=== PATIENT | male | born 1940 | race Caucasian/White ===

== ENCOUNTER → 2023-11-05 08:18 | Outpatient (REF) | payer MEDICARE, OTHER, SELFPAY ==
[2023-11-05 09:45] LABS: % Basophils 0.6 % (0-2); % Eosinophils 4.4 % (0-6); % Immature Granulocytes 0.3 % (0-0.5); % Lymphocytes 32.6 % (20.5-51.1); % Monocytes 8.6 % (1.7-9.3); % Neutrophils 53.5 % (42.2-75.2); Absolute Basophils 0.1 10^3/uL (0-0.2); Absolute Eosinophils 0.4 10^3/uL (0-0.7); Absolute Lymphocytes 2.9 10^3/uL (1.2-3.4); Absolute Monocytes 0.8 10^3/uL (0.1-0.6); Absolute Neutrophils 4.7 10^3/uL (1.4-6.5); Hematocrit 43.2 % (39.0-52.0); Hemoglobin 14.6 g/dL (13.0-18.0); Mean Corp Hgb Conc. 33.8 g/dL (33.0-37.0); Mean Corpuscular Hgb 28.9 pg (27.0-31.0); Mean Corpuscular Volume 85.5 fL (80.0-94.0); Mean Platelet Volume 9.6 fL (7.4-10.4); Nucleated Red Blood Cells % 0 % (-); Platelet Count 189 10^3/uL (130-400); Red Blood Cell Count 5.05 10^6/uL (4.70-6.10); Red Cell Dist. Width 13.9 % (11.5-14.5); White Blood Cell Count 8.8 10^3/uL (4.8-10.8)
[2023-11-05 10:42] LABS: ALT (SGPT) 39 U/L (0-50); AST (SGOT) 40 U/L (17-59); Albumin 3.6 g/dl (3.5-5.0); Alkaline Phosphatase 70 U/L (38-126); Blood Urea Nitrogen 28 mg/dl (9-20); Calcium 9.3 mg/dl (8.4-10.2); Carbon Dioxide 32 mmol/L (22-30); Chloride 98 mmol/L (98-107); Glucose 93 mg/dl (70-99); HDL Cholesterol 52 mg/dl; LDL Cholesterol, Calculated 108 mg/dl; Potassium 4.4 mmol/L (3.5-5.1); Sodium 137 mmol/L (135-145); Total Bilirubin 0.6 mg/dl (0.2-1.3); Total Cholesterol 174 mg/dl (50-199); Total Protein 6.6 g/dl (6.3-8.2); Triglyceride 71 mg/dl (10-149); Very Low Density Lipoprotein 14 mg/dl (0-30); eGFR > 60.00
[2023-11-05 10:54] LABS: TSH 2.05 uIU/ml (0.47-4.68)
[2023-11-06 18:47] LABS: PSA Total 3.4 ng/mL (0.0-4.0)
== END ==
LOC: REG 08:18
PROVIDERS: Internal Medicine; ATTENDING PHYSICIAN Surgery; FAMILY PHYSICIAN Internal Medicine
DX: E78.5 Hyperlipidemia, unspecified (principal); R53.83 Other fatigue; Z00.00 Encounter for general adult medical examination without abnormal findings; N40.0 Benign prostatic hyperplasia without lower urinary tract symptoms
CPT/HCPCS: 36415; 80053; 80061; 84153; 84154; 84443; 85025

== ENCOUNTER 2024-11-21 09:02 | Emergency (ER) | payer MEDICARE, OTHER, SELFPAY ==
[2024-11-21 09:04] VITALS: BP 120/81
[2024-11-21] MEDS: NSS 1000 IV (10:27)
[2024-11-21 10:37] LABS: % Basophils 0.1 % (0-2); % Eosinophils 0.1 % (0-6); % Immature Granulocytes 0.4 % (0-0.5); % Lymphocytes 2.6 % (20.5-51.1); % Monocytes 4.5 % (1.7-9.3); % Neutrophils 92.3 % (42.2-75.2); Absolute Immature Granulocytes 0.1 10^3/uL (0-0.05); Absolute Lymphocytes 0.4 10^3/uL (1.2-3.4); Absolute Monocytes 0.7 10^3/uL (0.1-0.6); Absolute Neutrophils 15.2 10^3/uL (1.4-6.5); Hematocrit 41.5 % (39.0-52.0); Hemoglobin 14.3 g/dL (13.0-18.0); Mean Corp Hgb Conc. 34.5 g/dL (33.0-37.0); Mean Corpuscular Hgb 28.5 pg (27.0-31.0); Mean Corpuscular Volume 82.7 fL (80.0-94.0); Mean Platelet Volume 9.7 fL (7.4-10.4); Nucleated Red Blood Cells % 0 % (-); Platelet Count 180 10^3/uL (130-400); Red Blood Cell Count 5.02 10^6/uL (4.70-6.10); Red Cell Dist. Width 14.9 % (11.5-14.5); White Blood Cell Count 16.4 10^3/uL (4.8-10.8)
[2024-11-21 10:47] LABS: ALT (SGPT) 37 U/L (0-50); AST (SGOT) 35 U/L (17-59); Albumin 3.7 g/dl (3.5-5.0); Alkaline Phosphatase 70 U/L (38-126); Blood Urea Nitrogen 31 mg/dl (9-20); Calcium 8.8 mg/dl (8.4-10.2); Carbon Dioxide 24 mmol/L (22-30); Chloride 104 mmol/L (98-107); Glucose 149 mg/dl (70-99); Lipase 864 U/L (23-300); Magnesium 2.2 mg/dl (1.6-2.3); Potassium 4.3 mmol/L (3.5-5.1); Sodium 134 mmol/L (135-145); Total Bilirubin 0.9 mg/dl (0.2-1.3); Total Protein 6.7 g/dl (6.3-8.2); eGFR > 60.00
--- NOTE | 2024-11-21 10:48 | ED.GENMED ---
History of Present Illness
General
Chief Complaint: Abdominal Symptoms
Source: patient
Exam Limitations: none
Time Seen by Provider: 11/21/24 09:56
Nursing documentation reviewed up to this point in time: agreed with
History of Present Illness
History of Present Illness:
Patient is an 84-year-old male presenting to the emergency department with nausea, vomiting, diarrhea. Patient states symptoms started around midnight last night and persisted until around 6 AM this morning. He reports multiple episodes of
nonbloody emesis along with diarrhea. He denies any associated fever, chills, or abdominal pain. Symptoms seem to have improved by arrival to emergency department. Patient denies any chest pain, shortness of breath, lightheadedness/dizziness.
Patient denies any urinary symptoms.
Patient does state his had very similar symptoms during same timeline and is also being evaluated in the emergency department. They did eat [employer] takeout for dinner last night and he believes he may have eaten something 'questionable'.
Past History
Past History
ED Past Medical History: Hypercholesterolemia and Other (Obstructive sleep apnea, chronic constipation)
ED Past Surgical History: Appendectomy, Tonsilectomy and Other
Social History
Tobacco: Non-smoker
Alcohol: None
Drug: None
Personal:
Living: with family
Employment: Retired
Family History
Family History: Other (Noncontributory)
Review of Systems
Review of Systems
Allergies reviewed?: Yes
All Other Systems: ROS reviewed and negative except as documented in HPI and ROS
Phy Exam
Physical Exam
Physical Exam:
Vitals: Patient's vital signs are stable. Afebrile
General: Patient is very well appearing, no acute distress. Nontoxic appearing
Skin: Warm and dry, no rashes or lesions
Head: Normocephalic, atraumatic
Eyes: Sclera nonicteric. EOMs intact. No nystagmus.
Throat: Protecting airway
Neck: Normal ROM, no cervical spine tenderness, no meningismus
Cardiac: Regular rate and rhythm, no murmurs.
Pulm: Normal respiratory effort, no wheezes, rales, rhonchi heard on exam.
Abdomen: Abdomen soft. No abdominal tenderness. No tenderness in epigastric region. No rebound tenderness or guarding. No CVA tenderness
Extremities: No evidence of cyanosis or edema. Palpable and equal 2+ radial and DP pulses bilaterally
Neuro: AAOx3. Grossly intact.
Psychiatric: Normal affect.
Course
Orders/Labs/Results
Orders:
Orders
11/21/24 10:19
0.9% Sodium Chloride 1000 ml [Nss] 1,000 ml IV BOLUS
11/21/24 10:26
Complete Blood Count/With Diff Urgent
Comprehensive Metabolic Panel Urgent
Lipase Urgent
Magnesium Urgent
11/21/24 11:06
CT Abd/pelvis W Iv Cont Urgent
Comment:
Reason For Exam: N/V/D, elevated lipase
Abnormal Lab Results
11/21/24
10:26
WBC 16.4 H 10^3/uL
(4.8-10.8)
RDW 14.9 H %
(11.5-14.5)
Abs Immat Gran (auto) 0.1 H 10^3/uL
(0-0.05)
Absolute Neuts (auto) 15.2 H 10^3/uL
(1.4-6.5)
Absolute Lymphs (auto) 0.4 L 10^3/uL
(1.2-3.4)
Absolute Monos (auto) 0.7 H 10^3/uL
(0.1-0.6)
Neutrophils % 92.3 H %
(42.2-75.2)
Lymphocytes % 2.6 L %
(20.5-51.1)
Sodium 134 L mmol/L
(135-145)
BUN 31 H mg/dl
(9-20)
Glucose 149 H mg/dl
(70-99)
Lipase 864 H U/L
(23-300)
11/21/24 10:26
11/21/24 10:26
Vital Signs
Initial and Last Documented VS:
Initial Vital Signs
Temp Pulse Resp BP Pulse Ox
98.3 F 106 16 120/81 94
11/21/24 09:04 11/21/24 09:04 11/21/24 09:04 11/21/24 09:04 11/21/24 09:04
Last Documented Vital Signs
Temp Pulse Resp BP Pulse Ox
98.3 F 79 16 121/78 98
11/21/24 09:04 11/21/24 14:10 11/21/24 14:10 11/21/24 14:10 11/21/24 14:10
MDM/Problems Addressed
Differential Diagnosis Includes:
Not limited to: Viral gastroenteritis, enterocolitis, pancreatitis, diverticulitis, etc.
MDM/Problems Addressed:
84-year-old male presenting with nausea, vomiting, and diarrhea which is since resolved. No associated fever or abdominal pain. Patient's with very similar symptoms after eating [place]ian food last night. Patient very mildly tachycardic on
arrival with otherwise stable vital signs. He is afebrile. Physical exam as above. Patient extremely well-appearing, no apparent distress. Abdomen soft with no tenderness throughout. Will send screening labs, lipase. Will give IV fluids given
tachycardia and concern for dehydration from GI losses. Patient denies any antiemetic, analgesia at this time as symptoms have essentially resolved.
Update: Labs reviewed. He does have a significant leukocytosis of 16.4 which may be reactive in nature although concern for underlying intra-abdominal infectious process. Chemistry shows evidence of mild dehydration otherwise unremarkable. Lipase
was found to be elevated 864. Given leukocytosis and elevation in lipase�will obtain CT abdomen/pelvis to rule out intra-abdominal process. Patient remains asymptomatic with benign abdominal exam.
Update: CT shows findings of diffuse enteritis consistent with patient's symptoms. Very mild peripancreatic edema noted. Did reassess patient at bedside who is absolutely no epigastric tenderness. Do not suspect acute pancreatitis. Patient has
remained hemodynamically stable, heart rate has normalized. Workup in emergency department negative and patient symptoms are improved. Feel stable for discharge home with close return precautions. Advised to follow-up with PCP this week to ensure
lipase normalizes. Discussed importance of staying well-hydrated, bland diet over the next 2 days with advance as tolerated. Patient expressed verbal understanding and is comfortable with plan.
Chronic conditions affecting care:
N/A
Acute Exacerbation and/or Progression of Chronic Illness:
N/A
*Radiology
Radiology exam reviewed: preliminary read by ED provider and radiology read reviewed
*Pulse Oximetry
Patient hypoxic: no
*EKG
Interpreted by ED Provider?: NA
*Courtesy [employer] Interpretation
Rate: normal
Interpretation: normal
Heart Rate: 76
Rhythm: sinus
*Critical Care Note
Total Time (30-74mins, 75-104mins- exclusive of procedures): Not Applicable
Patient Management
Escalation/DeEscalation of care consider admission/obs:
Admit not indicated
ED Attending Note
-
Portions of this chart may have been created with voice recognition software.� Occasional wrong word or��sound alike� substitutions may have occurred due to the inherent limitations of voice recognition software.
Discharge Plan
Departure
Patient Disposition: Home (Routine Discharge)
Date of Disposition: 11/21/24
Time of Disposition: 14:14
Patient with high blood pressure during this ER visit?: No
Condition: Good
Covid-19: Not Applicable
Discharge Problem:
Enteritis, Nausea vomiting and diarrhea
Instructions: Viral gastroenteritis in adults, Dehydration in adults - ED discharge instructions
Prescriptions:
No Action
meclizine 25 MG tablet
25 mg PO Q8HPRN PRN (Reason: Dizziness) Qty: 10 0RF
promethazine-phenylephrine [Promethazine VC] 5 ML syrup
5 ml PO Q4HPRN PRN (Reason: cough) Qty: 300 0RF
Denae
10 mg PO DAILY
multivitamin 1 EACH tablet
1 ea PO DAILY
aspirin 81 MG tablet,delayed release (DR/EC)
81 mg PO DAILY
pantoprazole 40 MG tablet,delayed release (DR/EC)
40 mg PO DAILY
ibuprofen 200 MG tablet
200 mg PO DAILY
coenzyme [id number] 1 CAP capsule
1 cap PO DAILY
guaifenesin [Mucinex] 1,200 MG tablet extended release 12hr
1,200 mg PO BID
Bifidobacterium infantis [Align (B.infantis)] 4 MG capsule
4 mg PO DAILY
magnesium oxide 400 MG capsule
400 mg PO DAILY
L.acidoph,paracasei,B.animalis 1 EACH capsule
1 ea PO DAILY
cholecalciferol (vitamin D3) 5,000 UNIT tablet,disintegrating
5,000 unit PO DAILY
Cholestroff Plus
1 tab PO BID
Melatonin
6 mg PO HS
Prevagen Es
1 tab PO DAILY
sulfamethoxazole-trimethoprim 1 TABLET tablet
1 tab PO BID Qty: 14 0RF
meclizine 12.5 MG tablet
12.5 mg PO Q8HPRN PRN (Reason: dizziness) Qty: 12 0RF
amoxicillin-pot clavulanate 875-125 mg tablet
1 tab PO BID Qty: 14 0RF
Referrals:
Cassi Yu MD [Family Provider] - Follow up in 2-3 days
Activity Restrictions/Additional Instructions:
Return to the emergency department with any high fevers, severe abdominal pain, intractable nausea/vomiting, signs of severe dehydration including lack of urinary production, worsening current symptoms, or any other concerns
-As discussed�your lipase level was elevated while in the emergency department today. You should follow-up with your primary care doctor in a few days for further evaluation/management and to have these levels rechecked via lab work.
-It is important to stay well-hydrated. You should eat a bland diet over the next few days and slowly advance as tolerated.
-Follow-up with primary care for further management
Monitor your symptoms closely and return to the emergency department with any acute worsening/new symptoms or any other concerns
Interventions
Interventions:
*Risk Screen - Suicide Last Done: 11/21/24 10:22
*General Assessment Last Done: 11/21/24 10:22
*Neglect/Abuse Screening Last Done: 11/21/24 10:22
*ED- Fall Risk Assessment Last Done: 11/21/24 10:22
*ED COVID-19 Vaccine History Last Done: 11/21/24 10:22
*Nursing Disposition Last Done: 11/21/24 14:23
DG-Dmyrxp-Vruvdetykc Assessment Last Done: 11/21/24 10:23
Discharge Date and Time
Discharge Date/Time: 11/21/24 14:25
Print Language: SETSWANA
[2024-11-21 12:00] VITALS: BP 126/85
[2024-11-21 14:10] VITALS: BP 121/78
== END 2024-11-21 14:25 | disposition home or self-care (01) ==
LOC: EMR 09:02
PROVIDERS: Physician Assistant; EMERGENCY PHYSICIAN Student in an Organized Health Care Education/Training Program; FAMILY PHYSICIAN Hospitalist
DX: K52.9 Noninfective gastroenteritis and colitis, unspecified (principal); R11.2 Nausea with vomiting, unspecified; E78.00 Pure hypercholesterolemia, unspecified; G47.33 Obstructive sleep apnea (adult) (pediatric); E86.0 Dehydration; Z90.49 Acquired absence of other specified parts of digestive tract
CPT/HCPCS: 99284; 96360; 74177; 80053; 83690; 83735; 85025; Q9967

== ENCOUNTER → 2025-02-24 09:21 | Outpatient (REF) | payer MEDICARE, OTHER, SELFPAY | LOC: RAD 09:21 | PROVIDERS: ATTENDING PHYSICIAN Hospitalist | DX: R10.9 Unspecified abdominal pain (principal) | CPT/HCPCS: 71101 ==

== ENCOUNTER → 2025-03-01 09:25 | Outpatient (REF) | payer MEDICARE, OTHER, SELFPAY ==
[2025-03-01 10:37] LABS: Blood Urea Nitrogen 23 mg/dl (9-20); Calcium 9.5 mg/dl (8.4-10.2); Carbon Dioxide 31 mmol/L (22-30); Chloride 99 mmol/L (98-107); Glucose 81 mg/dl (70-99); Lipase 180 U/L (23-300); Potassium 4.5 mmol/L (3.5-5.1); Sodium 133 mmol/L (135-145); eGFR > 60.00
[2025-03-01 11:05] LABS: PSA, Total - Screen 3.53 ng/ml (0.0-4.0)
== END ==
LOC: REG 09:25
PROVIDERS: ATTENDING PHYSICIAN Hospitalist
DX: R10.9 Unspecified abdominal pain (principal); R74.8 Abnormal levels of other serum enzymes; Z12.5 Encounter for screening for malignant neoplasm of prostate
CPT/HCPCS: 36415; 80048; 83690; G0103

== ENCOUNTER → 2025-03-11 10:37 | Outpatient (REF) | payer MEDICARE, OTHER, SELFPAY | LOC: RAD 10:37 | PROVIDERS: ATTENDING PHYSICIAN Hospitalist | DX: R10.9 Unspecified abdominal pain (principal) | CPT/HCPCS: 74177; Q9967 ==

== ENCOUNTER → 2025-03-17 14:44 | Outpatient (REF) | payer MEDICARE, OTHER, SELFPAY | LOC: HWRCS 14:44 | PROVIDERS: ATTENDING PHYSICIAN Hospitalist | DX: I34.81 Nonrheumatic mitral (valve) annulus calcification (principal) | CPT/HCPCS: 93306 ==

== ENCOUNTER → 2025-03-21 12:40 | Outpatient (REF) | payer MEDICARE, OTHER, SELFPAY ==
[2025-03-21 13:28] LABS: Hematocrit 39.7 % (39.0-52.0); Hemoglobin 13.5 g/dL (13.0-18.0); Mean Corp Hgb Conc. 34.0 g/dL (33.0-37.0); Mean Corpuscular Volume 82.9 fL (80.0-94.0); Nucleated Red Blood Cells % 0 % (-); Platelet Count 191 10^3/uL (130-400); Red Cell Dist. Width 14.4 % (11.5-14.5)
[2025-03-21 14:26] LABS: ALT (SGPT) 60 U/L (0-50); AST (SGOT) 44 U/L (17-59); Albumin 4.1 g/dl (3.5-5.0); Alkaline Phosphatase 60 U/L (38-126); Blood Urea Nitrogen 20 mg/dl (9-20); Calcium 9.2 mg/dl (8.4-10.2); Carbon Dioxide 26 mmol/L (22-30); Chloride 103 mmol/L (98-107); Glucose 99 mg/dl (70-99); HDL Cholesterol 54 mg/dl; LDL Cholesterol, Calculated 99 mg/dl; Potassium 4.5 mmol/L (3.5-5.1); Sodium 134 mmol/L (135-145); Total Protein 7.0 g/dl (6.3-8.2); Very Low Density Lipoprotein 18 mg/dl (0-30); eGFR > 60.00
== END ==
LOC: REG 12:40
PROVIDERS: ATTENDING PHYSICIAN Hospitalist
DX: Z00.00 Encounter for general adult medical examination without abnormal findings (principal); E78.5 Hyperlipidemia, unspecified; E87.1 Hypo-osmolality and hyponatremia; Z79.899 Other long term (current) drug therapy
CPT/HCPCS: 36415; 80053; 80061; 85025

== ENCOUNTER 2025-04-05 07:34 | Emergency (ER) | payer MEDICARE, OTHER, SELFPAY ==
[2025-04-05 07:45] VITALS: BP 189/127
[2025-04-05 08:06] VITALS: BMI 30.7
[2025-04-05 08:24] VITALS: BP 183/80
--- NOTE | 2025-04-05 08:29 | ED.GENMED ---
History of Present Illness
General
Chief Complaint: Head Injury
Source: patient
Exam Limitations: none
Time Seen by Provider: 04/05/25 08:14
History of Present Illness
History of Present Illness:
85-year-old male presents with laceration to left hand as well as a head injury. He leaned over in a rolling chair and lost his balance and fell backwards he hit his head again the door frame and cut his hand on something. He denies any numbness
or tingling or loss of function to the left hand. He denies neck pain. He is not anticoagulated. No significant headache. No other complaints at this time
Past History
Past History
ED Past Medical History: Hypercholesterolemia and Other (Obstructive sleep apnea, chronic constipation)
ED Past Surgical History: Appendectomy, Tonsilectomy and Other
Social History
Tobacco: Non-smoker
Alcohol: None
Drug: None
Personal:
Living: with family
Employment: Retired
Family History
Family History: Other (Noncontributory)
Phy Exam
Physical Exam
Physical Exam:
General: Well-appearing male in no acute respiratory distress
HEENT: Normocephalic atraumatic no obvious scalp abrasion or hematoma
Skin: 5 cm curvilinear laceration hypothenar eminence left hand superficial nature without tendon involvement no significant bleeding
Musculoskeletal exam: Cervical spine nontender. Full range of motion all fingers left hand with left wrist.
Neurologic exam: Good sensation left hand
Course
Orders/Labs/Results
Orders:
Orders
04/05/25 08:21
CT Head W/o Iv Contrast Urgent
Comment:
Reason For Exam: head injury
Vital Signs
Initial and Last Documented VS:
Initial Vital Signs
Temp Pulse Resp BP Pulse Ox
97.6 F 66 18 189/127 98
04/05/25 07:45 04/05/25 07:45 04/05/25 07:45 04/05/25 07:45 04/05/25 07:45
Last Documented Vital Signs
Temp Pulse Resp BP Pulse Ox
97.6 F 64 15 183/80 98
04/05/25 07:45 04/05/25 08:24 04/05/25 08:24 04/05/25 08:24 04/05/25 08:31
MDM/Problems Addressed
Differential Diagnosis Includes:
Fall with head strike not on anticoagulants but given age will order CT of head to evaluate for fracture or intracranial hemorrhage
Laceration left hand without tendon or vascular involvement. He is nontender to suggest any bony injury. The wound will require sutures
*Pulse Oximetry
SaO2: 98
Oxygen Mode of Delivery: Room air
Patient hypoxic: no
*Critical Care Note
Total Time (30-74mins, 75-104mins- exclusive of procedures): Not Applicable
Update Note
Update Note:
The wound was copiously irrigated with saline and anesthetized with 1% lidocaine with epinephrine then closed in a simple interrupted fashion using 4-0 Prolene sutures. There is mild revision performed. A total of 11 sutures were required to
provide wound edge approximation hemostasis. Antibacterial ointment and a gauze wrap was applied. Tetanus vaccine updated. Wound care instructions were given. Stable for discharge
ED Attending Note
-
Portions of this chart may have been created with voice recognition software.� Occasional wrong word or��sound alike� substitutions may have occurred due to the inherent limitations of voice recognition software.
Discharge Plan
Departure
Patient Disposition: Home (Routine Discharge)
Date of Disposition: 04/05/25
Time of Disposition: 09:07
Patient with high blood pressure during this ER visit?: No
Discharge Problem:
Laceration
Instructions: Laceration Repair With Stitches (DC)
Prescriptions:
No Action
meclizine 25 MG tablet
25 mg PO Q8HPRN PRN (Reason: Dizziness) Qty: 10 0RF
promethazine-phenylephrine [Promethazine VC] 5 ML syrup
5 ml PO Q4HPRN PRN (Reason: cough) Qty: 300 0RF
Denae
10 mg PO DAILY
multivitamin 1 EACH tablet
1 ea PO DAILY
aspirin 81 MG tablet,delayed release (DR/EC)
81 mg PO DAILY
pantoprazole 40 MG tablet,delayed release (DR/EC)
40 mg PO DAILY
ibuprofen 200 MG tablet
200 mg PO DAILY
coenzyme [id number] E 1 CAP capsule
1 cap PO DAILY
guaifenesin [Mucinex] 1,200 MG tablet extended release 12hr
1,200 mg PO BID
Bifidobacterium infantis [Align (B.infantis)] 4 MG capsule
4 mg PO DAILY
magnesium oxide 400 MG capsule
400 mg PO DAILY
L.acidoph,paracasei,B.animalis 1 EACH capsule
1 ea PO DAILY
cholecalciferol (vitamin D3) 5,000 UNIT tablet,disintegrating
5,000 unit PO DAILY
Cholestroff Plus
1 tab PO BID
Melatonin
6 mg PO HS
Prevagen Es
1 tab PO DAILY
sulfamethoxazole-trimethoprim 1 TABLET tablet
1 tab PO BID Qty: 14 0RF
meclizine 12.5 MG tablet
12.5 mg PO Q8HPRN PRN (Reason: dizziness) Qty: 12 0RF
amoxicillin-pot clavulanate 875-125 mg tablet
1 tab PO BID Qty: 14 0RF
Referrals:
Cassi Yu MD [Family Provider, Internal Medicine]
Activity Restrictions/Additional Instructions:
Keep clean. Have sutures removed in 12-14 days. You may use tylenol or ibuprofen as needed for pain. Return if needed otherwise follow up with PMD.
Interventions
Interventions:
*Risk Screen - Suicide Last Done: 04/05/25 07:45
*General Assessment Last Done: 04/05/25 07:45
*Neglect/Abuse Screening Last Done: 04/05/25 08:07
*ED- Fall Risk Assessment Last Done: 04/05/25 08:07
*ED COVID-19 Vaccine History Last Done: 04/05/25 07:45
ED- Neurological Assessment Last Done: 04/05/25 08:07
ED-Skin Assessment Last Done: 04/05/25 08:16
Discharge Date and Time
Print Language: AFGHAN
[2025-04-05 09:14] VITALS: BP 165/74
[2025-04-05] MEDS: ADACEL 0.5 ML IM (09:17)
== END 2025-04-05 09:39 | disposition home or self-care (01) ==
LOC: EMR 07:34
PROVIDERS: EMERGENCY PHYSICIAN Emergency Medicine; FAMILY PHYSICIAN Hospitalist
DX: S61.412A Laceration without foreign body of left hand, initial encounter (principal); W07.XXXA Fall from chair, initial encounter; Z23 Encounter for immunization; E78.00 Pure hypercholesterolemia, unspecified; G47.33 Obstructive sleep apnea (adult) (pediatric); Z90.49 Acquired absence of other specified parts of digestive tract
CPT/HCPCS: 99284; 12001; 90471; 70450; 90715

== ENCOUNTER → 2025-05-04 13:08 | Outpatient (REF) | payer MEDICARE, OTHER, SELFPAY ==
[2025-05-04 16:42] LABS: ALT (SGPT) 39 U/L (0-50); AST (SGOT) 38 U/L (17-59); Albumin 3.9 g/dl (3.5-5.0); Alkaline Phosphatase 55 U/L (38-126); Blood Urea Nitrogen 34 mg/dl (9-20); Calcium 9.0 mg/dl (8.4-10.2); Carbon Dioxide 30 mmol/L (22-30); Chloride 101 mmol/L (98-107); Glucose 90 mg/dl (70-99); Potassium 5.0 mmol/L (3.5-5.1); Sodium 135 mmol/L (135-145); Total Protein 6.8 g/dl (6.3-8.2); eGFR 59.63
== END ==
LOC: HWLAB 13:08
PROVIDERS: ATTENDING PHYSICIAN Hospitalist
DX: R79.89 Other specified abnormal findings of blood chemistry (principal)
CPT/HCPCS: 36415; 80053

== ENCOUNTER → 2025-08-04 12:22 | Outpatient (REF) | payer MEDICARE, OTHER, SELFPAY ==
[2025-08-04 16:05] LABS: Hematocrit 38.7 % (39.0-52.0); Hemoglobin 12.8 g/dL (13.0-18.0); Mean Corp Hgb Conc. 33.1 g/dL (33.0-37.0); Mean Corpuscular Volume 83.2 fL (80.0-94.0); Nucleated Red Blood Cells % 0 % (-); Platelet Count 185 10^3/uL (130-400); Red Cell Dist. Width 14.0 % (11.5-14.5)
[2025-08-04 16:11] LABS: ALT (SGPT) 38 U/L (0-50); AST (SGOT) 41 U/L (17-59); Albumin 3.7 g/dl (3.5-5.0); Alkaline Phosphatase 63 U/L (38-126); Blood Urea Nitrogen 23 mg/dl (9-20); Calcium 9.4 mg/dl (8.4-10.2); Carbon Dioxide 28 mmol/L (22-30); Chloride 98 mmol/L (98-107); Glucose 169 mg/dl (70-99); Potassium 4.2 mmol/L (3.5-5.1); Sodium 128 mmol/L (135-145); Total Protein 6.9 g/dl (6.3-8.2); eGFR > 60.00
[2025-08-04 17:17] LABS: Folate > 20.0 ng/ml (2.76-20); Vitamin B12 692 pg/ml (239-931)
== END ==
LOC: HWLAB 12:22
PROVIDERS: ATTENDING PHYSICIAN Specialist; FAMILY PHYSICIAN Hospitalist
DX: G31.84 Mild cognitive impairment of uncertain or unknown etiology (principal)
CPT/HCPCS: 36415; 80053; 82607; 82746; 84443; 85025; 85652

== ENCOUNTER → 2025-08-31 08:28 | Outpatient (REF) | payer MEDICARE, OTHER, SELFPAY ==
[2025-08-31 10:54] LABS: Blood Urea Nitrogen 24 mg/dl (9-20); Calcium 9.4 mg/dl (8.4-10.2); Carbon Dioxide 29 mmol/L (22-30); Chloride 100 mmol/L (98-107); Glucose 91 mg/dl (70-99); Potassium 4.4 mmol/L (3.5-5.1); Sodium 133 mmol/L (135-145); eGFR > 60.00
== END ==
LOC: REG 08:28
PROVIDERS: ATTENDING PHYSICIAN Hospitalist
DX: E87.1 Hypo-osmolality and hyponatremia (principal)
CPT/HCPCS: 36415; 80048